=== PATIENT | female | born 1985 | race African-American/Black ===

== ENCOUNTER 2018-04-14 07:12 | Emergency (ER) | payer MEDICARE, MEDICAID ==
[~2018-04-14] VITALS: Ht 172.7 cm; Wt 87.0 kg
[2018-04-14 07:39] VITALS: BP 129/91
== END 2018-04-14 15:46 | disposition left against medical advice (07) ==
LOC: ER 07:39
DX: Z53.21 Procedure and treatment not carried out due to patient leaving prior to being seen by health care provider (principal)

== ENCOUNTER 2021-01-29 13:27 | Emergency (ER) | payer MEDICAID, MEDICARE ==
[~2021-01-29] VITALS: Ht 170.2 cm; Wt 77.0 kg
[~2021-01-29 13:27] MED LIST: PNV1TABL50 MT
[2021-01-29 13:59] VITALS: BP 145/91
[2021-01-29] MEDS ORDERED: SODIUM CHLORIDE 0.9% 1,000 ML IV ONE (14:15)
== END 2021-01-29 14:55 | disposition left against medical advice (07) ==
LOC: ER 13:27
DX: R41.82 Altered mental status, unspecified (principal)
CPT/HCPCS: 99283; J7030

== ENCOUNTER 2021-07-03 21:15 | Emergency (ER) | payer MEDICAID ==
[~2021-07-03] VITALS: Ht 172.7 cm; Wt 65.0 kg
[2021-07-03 22:15] VITALS: BP 108/55
== END 2021-07-03 22:15 | disposition home or self-care (01) ==
LOC: ER 21:15
DX: F16.129 Hallucinogen abuse with intoxication, unspecified (principal); R94.31 Abnormal electrocardiogram [ECG] [EKG]
CPT/HCPCS: 93005; 99283